=== PATIENT | male | born 1995 ===

== ENCOUNTER 2017-12-03 19:09 | Emergency (ER) | payer OTHER ==
[2017-12-03 19:31] VITALS: BP 131/68; PULSE 69; RESP 18; TEMP 98.5; O2SAT 100
--- NOTE | 2017-12-03 20:39 | C.PDOC ---
History Of Present Illness 22yo male, presents to ER for evaluation of left upper dental pain for the past 2 days. He states he has not been able to follow up with a dentist due to scheduling issues. He denies any fever, facial swelling, throat swelling. No other complaints. Time Seen by Provider: 12/03/17 19:56 Chief Complaint (Nursing): Dental Pain History Per: Patient History/Exam Limitations: no limitations Onset/Duration Of Symptoms: Days Current Symptoms Are (Timing): Still Present Quality: Positive for: "Pain" Past Medical History Reviewed: Historical Data, Nursing Documentation, Vital Signs Vital Signs: Last Vital Signs Temp 98.5 F 12/03/17 19:28 Pulse 69 12/03/17 19:28 Resp 18 12/03/17 19:28 BP 131/68 12/03/17 19:28 Pulse Ox 100 12/03/17 21:09 - Medical History PMH: No Chronic Diseases Surgical History: No Surg Hx Family History: States: No Known Family Hx - Social History Hx Alcohol Use: Yes Hx Substance Use: No - Immunization History Hx Tetanus Toxoid Vaccination: Yes Hx Influenza Vaccination: No Hx Pneumococcal Vaccination: No Review Of Systems Except As Marked, All Systems Reviewed And Found Negative. Constitutional: Negative for: Fever, Chills ENT: Positive for: Other (dental pain). Negative for: Mouth Swelling, Throat Pain, Throat Swelling Physical Exam - Physical Exam Appears: Non-toxic, No Acute Distress Skin: Normal Color Head: Normacephalic Eye(s): bilateral: Normal Inspection Nose: Flaring Oral Mucosa: Moist, Other (no swelling to floor of mouth) Teeth: Caries (complete erosion of the 4th left upper premolar with root of tooth still embedded in gum.) Gingiva: Erythema (localized erythema and tenderness near left 4th upper premolar. no fluctuant mass noted. ), No Swelling Neck: Normal ROM, Supple, No Other (swelling) Neurological/Psych: Oriented x3 ED Course And Treatment O2 Sat by Pulse Oximetry: 100 (RA) Pulse Ox Interpretation: Normal Progress Note: Motrin 800 mg PO given. Patient to be discharged home with clindamycin and instructed to follow up with dentist. Disposition Counseled Patient/Family Regarding: Diagnosis - Disposition Referrals: Dentist, dental office [Other] Disposition: HOME/ ROUTINE Disposition Time: 20:39 Condition: STABLE Additional Instructions: Follow up with Dental office - schedule appointment with your doctor office Take meds as directed Return to ER if worse Prescriptions: Clindamycin [Cleocin] 300 mg PO Q6 #28 cap Ibuprofen [Motrin Tab] 800 mg PO QID #24 tab Instructions: Dental Pain (DC) Forms: [facility] (Greenlandic) - Clinical Impression Clinical Impression: Dental caries - PA / PRODUCTION LEAD / Resident Statement MD/DO has reviewed & agrees with the documentation as recorded. - Scribe Statement The provider has reviewed the documentation as recorded by the Scribe (Laurence Armstrong) Provider Attestation: All medical record entries made by the Scribe were at my direction and personally dictated by me. I have reviewed the chart and agree that the record accurately reflects my personal performance of the history, physical exam, medical decision making, and the department course for this patient. I have also personally directed, reviewed, and agree with the discharge instructions and disposition.
== END 2017-12-03 20:47 | disposition home or self-care (01) ==
LOC: C.ER 19:09
DX: K02.9 Dental caries, unspecified (principal)

== ENCOUNTER 2018-04-04 02:56 | Emergency (ER) | payer OTHER ==
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
[2018-04-04 06:09] VITALS: BP 111/79; PULSE 90; RESP 18; TEMP 97.8; O2SAT 99
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
== END 2018-04-04 06:17 | disposition home or self-care (01) ==
LOC: C.ER 02:56
DX: S00.83XA Contusion of other part of head, initial encounter (principal); Y04.0XXA Assault by unarmed brawl or fight, initial encounter